=== PATIENT | male | born 1980 | race Caucasian/White ===

== ENCOUNTER 2018-05-27 17:48 | Emergency (ER) | payer OTHER ==
--- NOTE | 2018-05-27 18:13 | EDPHY ---
General Time Seen by Provider: 05/27/18 18:12 Narrative: CLINICAL IMPRESSION: Right foot laceration ASSESSMENT/PLAN: Patient is a 38-year-old male with no significant medical history who presents to the emergency department after dropping and knife onto his right foot complaining of pain and laceration. Physical examination revealed a 5 mm laceration just proximal to the right great MCP; patient had full strength with flexion and extension, 2 point discrimination was intact distally. X-ray revealed no acute bony abnormality or evidence of radiopaque foreign body. There is no evidence of deep structure involvement, neurovascular compromise, foreign body, or bony involvement. The wound was not contaminated, tetanus status was already up-to-date. The wound was irrigated and then repaired as discussed in the procedure note, the patient tolerated this well. Wound care instructions discussed with patient, he will return to the emergency department 7 days for suture removal. He is new to the area and does not have a PCP, I did provided with a referral. Return precautions discussed- he will return for increased pain, signs of infection, fever, vomiting, if the wound opens or for any other concerns. Patient verbalizes understanding and he is in agreement with this plan. DIFFERENTIAL DX: Differential diagnosis including but not limited to laceration, tendon laceration, neurovascular compromise, fracture ED PROCEDURES: Laceration Repair Verbal consent obtained by patient. Risks discussed, including but not limited to infection, pain, retained foreign body, need for additional repair, poor cosmetic result, tendon damage, nerve damage, poor wound healing, vascular damage. Alternatives to repair discussed. [place] protocol used to establish correct patient, procedure, equipment, faculty support coordinator, and site. Anesthesia obtained by local infiltration. Anesthetized with 1% lidocaine with epinephrine. Laceration location proximal to the right great MCP, length 5 mm, depth 2 mm, Repair type simple. Patient was prepped and draped in usual sterile fashion. Hemostasis achieved with direct pressure. Wound explored through full range of motion and entire depth of wound probed and visualized with gloved finger. No suspicion for nerve damage, tendon damage, underlying fracture, vascular damage, foreign body, or contamination. Area was cleansed with Shur-Clens and irrigated with sterile saline as per protocol. No foreign body or material removed. Repair method 5.0 Prolene interrupted. Two sutures placed. Well aligned, closely approximated. wound was dressed with antibiotic ointment and dressing. Patient tolerated well with no immediate complications. Wound care: Clean and dry x 24 hours, gently clean with soap and water, cover with topical antibiotic ointment/bandage. Suture/Staple removal: 7 Days CHIEF COMPLAINT: Right foot laceration HPI: Patient is a 38-year-old male with no significant medical history presents to the emergency department after accidentally dropping and knife onto his right great toe. Patient reports just prior to arrival he was using his knife, he dropped it when it lodged into his right great toe, the tip of the blade of the knife ended up breaking off. Patient took a pair of pliers and was able to retrieve the remaining tip fully intact however he is concerned that he might have a deeper structure involvement as it was difficult to remove the blade. He denies any numbness or tingling of the toe, he denies any reduced range of motion. He denies any other injury. He is currently up-to-date on his tetanus status. He has not taken anything for pain. PAST MEDICAL HISTORY: Denies Family History: Not contributory Social History: Denies ROS: A full 10 point review of systems was negative except for those mentioned in HPI. PHYSICAL EXAM: General Appearance: Alert, well-appearing, no acute distress. HENT: Normocephalic, atraumatic. External ears are normal. Nares are clear, mucosa is pink. Oropharynx is clear. Eyes: PERRLA, EOMI. Conjunctiva pink, no pallor or injection. Neck: Supple, nontender, no lymphadenopathy, no midline pain, FROM. Respiratory: There are no retractions, lungs are clear to auscultation. Cardiac: Regular rate and rhythm, no murmurs or gallops. Gastrointestinal: Abdomen is soft, nontender, bowel sounds normal, no masses/ hernia, no rigidity, guarding or focal peritoneal findings. Skin: Warm, dry. Upper Extremities: Intact distal pulses, Full range of motion intact, no tenderness, no ecchymosis or edema. Lower Extremities: Right lower extremity reveals 5 mm laceration proximal to the right great MCP, otherwise unremarkable. Patient with full strength with both Dorsi and plantar flexion. Two point discrimination is intact distally of the great toe. He has tenderness to palpation at the site of his laceration. Left lower extremity is unremarkable, 2+ dorsalis pedis, No edema, No tenderness , No cyanosis, full range of motion intact. MEDICAL DECISION MAKING: Patient was seen independently. Secondary supervising physician at time of evaluation was Dr. Payan, she did not evaluate this patient. Diagnosis: Right great toe laceration. New, requires workup Summary: See Assessment and Plan for summary of ED visit Clinical lab tests: Not applicable. Independent visualization of images, tracing, or specimens: Yes. Decision to obtain medical records or history from someone other than the patient: No Review / Summarize previous medical records: Yes Patient Progress: Stable, discharge. - Diagnostics Imaging Results: Imaging Impressions Foot X-Ray 05/27/18 18:15 Impression: There is no acute osseous abnormality or radiopaque foreign body identified. - History Smoking Status: Never smoked - Objective Vital Signs: Initial Vital Signs Temperature (C) 36.9 C 05/27/18 17:52 Heart Rate 54 L 05/27/18 17:52 Respiratory Rate 16 05/27/18 17:52 Blood Pressure 131/90 H 05/27/18 17:52 O2 Sat (%) 95 05/27/18 17:52 O2 Delivery Mode Room Air Allergies/Adverse Reactions: No Known Allergies Allergy (Unverified 05/27/18 17:52) Home Medications: Medication Instructions Recorded NK [No Known Home Meds] 05/27/18 Departure - Departure Disposition: Home, Routine, Self-Care Clinical Impression: Toe laceration Qualifiers: Encounter type: initial encounter Toe: great toe Damage to nail status: without damage Foreign body presence: without foreign body Laterality: right Qualified Code(s): S91.111A - Laceration without foreign body of right great toe without damage to nail, initial encounter Condition: Good Instructions: Laceration (ED) Additional Instructions: DISCHARGE INSTRUCTIONS FROM YOUR DOCTOR Thank you for visiting our emergency department today. Please keep in mind that discharge from the emergency department does not mean that there is nothing wrong - it simply means that we have not identified an emergency condition that requires further evaluation or treatment in the hospital. You should always plan to follow up with primary care for re-evaluation of your condition in the next 2-3 days. Keep wound clean and dry for 24 hours. Then remove dressing, clean at least twice daily or when soiled with soap and water, apply antibiotic ointment and dressing. Do not soak the wound while the stitches are in place. Elevate foot as much as possible for the next 24 hours to decrease the swelling and pain. Anticipate suture removal in 7 days. For pain control: You may take Tylenol, I recommend 500-1000 mg every 6-8 hours as needed. Take with food and a full glass of water. Stop taking if this is upsetting her stomach. Do not exceed 4000 mg in a 24 hr period. You may also take ibuprofen, recommend 400 mg every 6 hr. Take with food and a full glass of water. Stop taking if this upsets her stomach. Do not exceed 2400 mg in a 24 hr period. Schedule a follow-up visit with your primary care physician for suture removal in 7 days and sooner for wound check for any concerns. As discussed the laceration was not deep enough to visualize the tendon today. It is unlikely a tendon injury is present and your tendon function is currently intact. However, if at any time, you feel a pop and have difficulty bending or straightening the toe, you should seek re-evaluation from a spice fumigator urgently. Return for signs of wound infection ie: redness, swelling, drainage, foul odor, red streaks, fever, chills, pain, bleeding, if the stitches pop, if the wound opens, for numbness, tingling, weakness, discoloration of the toe, coolness of the toe, inability to move or bend the toe or for any other new, worsening or worrisome symptoms. People present with illnesses and injuries in different ways, and it is always possible that we have missed something. You may always return for re-evaluation if symptoms worsen or if they are not improving or if you develop new/different symptoms. Again, thank you for choosing our emergency department. We hope that you feel better. Referrals: Ricky Chamberlain DPM [Doctor of Podiatric Medicine] - 2-3 days, call for appt. Seema Poe MD [Medical Doctor] - As per Instructions (Please establish care with a primary care provider if you have not done so.) ED,PHYSICIAN HUNG [Medical Doctor] - As per Instructions (Seven days for suture removal)
[2018-05-27 19:40] VITALS: BP 129/80
== END 2018-05-27 19:40 | disposition home or self-care (01) ==
PROC: 0HQMXZZ Repair Right Foot Skin, External Approach (ICD-10-PCS; principal; 2018-05-27)
DX: S91.111A Laceration without foreign body of right great toe without damage to nail, initial encounter (principal); W26.0XXA Contact with knife, initial encounter